=== PATIENT | female | born 1970 ===

== ENCOUNTER 2018-07-31 12:40 | Outpatient (CLI) | payer MEDICAID, SELFPAY ==
--- NOTE | 2018-07-31 14:13 | DI.US_ITS ---
SYMPTOMS/DIAGNOSIS: IUD NOT INTACT UPON REMOVAL, LOCALIZATION OF IUD ARM, T83.39 PELVIC ULTRASOUND: Pelvic ultrasound was performed transabdominally and transvaginally. The patient reportedly has questioned retained fragments of attempted removal of IUD. Transvaginal scanning shows a lower uterine segment echogenic foreign body consistent with IUD fragment. There is an approximately 8 cm in greatest diameter heterogeneous mass like finding in the right adnexal region. This may represent a fibroid or pedunculated fibroid. The possibility of ovarian mass not excluded on the basis of this examination. Correlation with pelvic MRI recommended to differentiate this finding. CONCLUSION: 1. Apparent IUD fragment in lower uterine segment. 2. Right adnexal mass vs fibroid, correlation with MR of the pelvis recommended.
== END 2018-07-31 13:00 ==
PROVIDERS: Visit Provider Nurse Practitioner Adult Health
DX: T83.39XD Other mechanical complication of intrauterine contraceptive device, subsequent encounter (principal); R19.09 Other intra-abdominal and pelvic swelling, mass and lump
CPT/HCPCS: 76830; 76856

== ENCOUNTER 2021-12-07 16:15 | Outpatient (REF) | payer MEDICAID, SELFPAY ==
[2021-12-07 17:21] LABS: HCT 41.8 % (36.0-46.0); HGB 13.7 g/dL (11.2-15.7); MCH 29.1 pg (27.0-33.0); MCHC 32.8 % (32.0-36.0); MCV 88.7 fL (80-95); MPV 10.7 fL (8.0-11.0); Platelet Count 260 10^3/uL (130-400); RBC 4.71 10^6/uL (3.93-5.22); RDW 12.9 % (11.7-14.6); RDW-SD 42.5 fL; WBC 6.55 10^3/uL (4.4-10.8)
[2021-12-07 17:40] LABS: ALT 29 U/L (14-59); AST 24 U/L (15-37); Albumin 4.1 g/dL (3.4-5.0); Alkaline Phosphatase 68 U/L (46-116); Anion Gap 11.3 mmol/L (3-11); BUN 17 mg/dL (7-18); Bilirubin, Total 0.6 mg/dL (0.2-1.0); CO2 25.7 mmol/L (21.0-32.0); CREATININE 0.7 mg/dL (0.55-1.02); Calcium 8.7 mg/dL (8.5-10.1); Calculated LDL 109 mg/dL (<100); Chloride 106 mmol/L (98-107); Cholesterol 187 mg/dL (<200); Glucose 109 mg/dL (74-106); HDL Cholesterol 54 mg/dL (40-60); Potassium 4.1 mmol/L (3.5-5.1); Sodium 143 mmol/L (136-145); TSH (W/Ref FT4) 1.09 uIU/mL (0.36-3.74); Total Protein 7.4 g/dL (6.4-8.2); Triglyceride 121 mg/dL (<150)
[2021-12-09 10:34] LABS: HIV-1/2 Ag & Ab Screen Negative (Negative)
[2021-12-10 11:08] LABS: Hepatitis C Ab w Rflx HCV PCR Negative (Negative)
== END 2021-12-07 16:16 | disposition home or self-care (01) ==
LOC: NCHCN 16:15
PROVIDERS: PCP Nurse Practitioner Family; Visit Provider Nurse Practitioner Family
DX: R63.4 Abnormal weight loss (principal); R03.0 Elevated blood-pressure reading, without diagnosis of hypertension; Z11.4 Encounter for screening for human immunodeficiency virus [HIV]; Z11.59 Encounter for screening for other viral diseases; Z13.220 Encounter for screening for lipoid disorders; Z00.00 Encounter for general adult medical examination without abnormal findings
CPT/HCPCS: 80053; 80061; 85027; 86803; 87389; 84443

== ENCOUNTER 2022-11-29 01:38 | Outpatient (CLI) | payer MEDICAID, SELFPAY ==
--- OUTSIDE RECORDS SUMMARY | 2022-11-29 01:40 | XMS_ITS ---
Author Name LawsonHenri ayala Address [address], [place] [id number] Organization [facility] Address [address], [place] [id number] Care Team Providers Care Supervisor Production Department Name Role Phone Henri Lawson Unavailable PROBLEMS Type Condition ICD9-CM Code [id number] Code Onset Dates Condition Status SNOMED Code Problem EUSTACHIAN TUBE DIS NOS 381.9 Active 70242638 Problem Otorrhea NOS 388.60 Active 79805208 ALLERGIES Substance Reaction Event Type Date Status sulfa eye drops Unknown Non Drug Allergy Jan, A ctive ENCOUNTERS Encounter Location Date Diagnosis [facility] [address], [address] [place], [place] [id number] Jan, Otorrhea NOS 388.60 and EUSTACHIAN TUBE DIS NOS 381.9 IMMUNIZATIONS No Known Immunizations SOCIAL HISTORY Never Assessed REASON FOR REFERRAL FUNCTIONAL STATUS PLAN OF CARE Activity Details VITAL SIGNS Weight 200 lbs 2013-02-22 Heart Rate 80 /min 2013-02-22 Blood pressure systolic 118 mm Hg Blood pressure diastolic 88 mm Hg 2013-01 MEDICATIONS Medication Instructions Dosage Frequency Start Date End Date Duration Status Calcium 500 MG Orally Twice a day 1 tablet with meals 12h 30 day(s) Active colace 100 MG Orally Up to 2 tabs four times a day 1 capsule as needed Active Licorice-Glycin e 400-50 MG as directed Active Kelp 150 MCG Orally Once a day 1 tablet 24h 30 day(s) Active Vitamin D-3 5000 UNIT as directed Active B Complex as directed Ac tive Proctocream HC 2.5 % Rectal Twice a day 1 application to affected area 12h 30 day(s) Active Paragard Intrauterine Copper as directed Active Aguanga 3 1000 MG Orally Once a day 1 capsule 24h 30 day(s) Active PROCEDURES No Known procedures RESULTS No Results REASON FOR VISIT r ear blockage dizziness ? trauma blood in ear no known trauma Insurance Providers Health Insurance Type Health Plan Insurance Address Health Plan Insurance Phone Health Plan Insurance Name Health Plan Coverage Dates Member ID Patient Relationship to Subscriber Patient Address Patient Phone Patient Name Patient Date of Subscriber ID Subscriber Name Subscriber Date of Group No [facility] - DO NOT BILL (Write Off) [id number] [facility] [id number] [facility] - DO NOT BILL (Write Off) [facility] [id number]
[2022-11-29 10:48] LABS: Abs Immature Grans 0.03 10^3/uL (0.0-0.06); Absolute Basophil Count 0.06 10^3/uL (0.0-0.2); Absolute Eosinophil Count 0.25 10^3/uL (0.0-0.7); Absolute Lymphocyte Count 2.69 10^3/uL (1.2-3.4); Absolute Monocyte Count 0.49 10^3/uL (0.1-0.8); Absolute Neutrophil Count 3.35 10^3/uL (1.2-6.7); Basophils % 0.9; Eosinophils % 3.6; HCT 44.2 % (36.0-46.0); HGB 14.5 g/dL (11.2-15.7); Immature Grans % 0.4; Lymphocytes % 39.2; MCH 29.6 pg (27.0-33.0); MCHC 32.8 % (32.0-36.0); MCV 90 fL (80-95); Monocytes % 7.1; Neutrophils % 48.8; Platelet Count 272 10^3/uL (130-400); RDW 13.3 % (11.7-14.6); RDW-SD 44.2 fL; WBC 6.87 10^3/uL (4.4-10.8)
[2022-11-29 11:05] LABS: ALT 44 U/L (14-59); AST 32 U/L (15-37); Albumin 4.1 g/dL (3.4-5.0); Alkaline Phosphatase 65 U/L (46-116); Anion Gap 6.6 mmol/L (3-11); BUN 14 mg/dL (7-18); Bilirubin, Total 0.7 mg/dL (0.2-1.0); CO2 30.4 mmol/L (21.0-32.0); CREATININE 0.8 mg/dL (0.55-1.02); Calcium 9.1 mg/dL (8.5-10.1); Calculated LDL 112 mg/dL (<100); Chloride 103 mmol/L (98-107); Cholesterol 194 mg/dL (<200); Glucose 92 mg/dL (74-106); HDL Cholesterol 64 mg/dL (40-60); Potassium 4.3 mmol/L (3.5-5.1); Sodium 140 mmol/L (136-145); TSH 1.25 uIU/mL (0.36-3.74); Triglyceride 93 mg/dL (<150)
[2022-11-29 11:06] LABS: Hemoglobin A1C 5.7 % (<5.7)
== END 2022-11-29 01:39 | disposition home or self-care (01) ==
LOC: LOS 01:39
PROVIDERS: PCP Nurse Practitioner Family; Visit Provider Naturopath
DX: I10 Essential (primary) hypertension (principal); R53.83 Other fatigue; F41.8 Other specified anxiety disorders; F32.89 Other specified depressive episodes; E55.9 Vitamin D deficiency, unspecified; Z13.1 Encounter for screening for diabetes mellitus
CPT/HCPCS: 36415; 80053; 80061; 82306; 83036; 84443; 85025

== ENCOUNTER 2023-11-19 10:03 | Outpatient (REF) | payer BC, SELFPAY ==
[2023-11-19 15:56] LABS: Vitamin D 25 Total 33.8 ng/mL (30-100)
== END 2023-11-19 10:04 | disposition home or self-care (01) ==
LOC: NCHCN 10:03
PROVIDERS: Visit Provider Student in an Organized Health Care Education/Training Program
DX: E55.9 Vitamin D deficiency, unspecified (principal)
CPT/HCPCS: 82306

== ENCOUNTER 2025-05-22 20:21 | Emergency (ER) | payer BC, SELFPAY ==
[2025-05-22 20:25] VITALS: BP 143/90; PULSE 80; RESP 14; TEMP 36.9; O2SAT 97
[2025-05-22 20:36] VITALS: BP 143/90; PULSE 80; RESP 14; TEMP 36.9; O2SAT 97
[2025-05-22] MEDS: Diph,Pertuss(Acell),Tet Vac/Pf 0.5 ML SYR IM (21:00)
[2025-05-22] MEDS: Amox. 875/Clav. 125, 2 TABS/BTL 1 TAB PO (21:00)
[2025-05-22] MEDS: Acetaminophen 500 MG TAB 1000 MG PO (21:01)
--- NOTE | 2025-05-22 21:07 | W.ED.GENAD ---
Discharge Plan Disposition Patient Disposition: Home Condition: Stable Discharge Details Clinical Impression: Cat scratch of forearm, Cat bite of forearm Primary Care Provider: Unknown,Unknown ED Provider: Lolita Whitaker Home Meds and New Rx's Prescriptions: New amoxicillin-pot clavulanate 875-125 mg tablet 1 tab PO BID 9 Days Qty: 18 0RF No Action zinc gluconate 30 mg tablet 30 mg PO DAILY cholecalciferol (vitamin D3) 1,000 unit capsule 1,000 unit PO DAILY calcium carbonate [Calcium 600] 600 mg calcium (1,500 mg) tablet 600 mg PO BID vitamin B complex [B Complex-Vitamin B12] tablet 2 tab PO DAILY milk thistle 150 mg capsule 150 mg PO BID PRN Adult Probiotic 3 billion cell capsule 3,000 mmu cells PO DAILY bisacodyl [Dulcolax (bisacodyl)] 5 mg tablet,delayed release (DR/EC) 5 mg PO ONCE Qty: 4 0RF Rx Instructions: Colonoscopy Bowel Prep- Per Instructions polyethylene glycol 3350 17 gram/dose powder 255 g PO ONCE Qty: 255 0RF Rx Instructions: Colonoscopy Bowel Prep- Per Instructions Discharge Instructions Instructions: Animal Bites ED Additional Instructions: You were seen in the emergency department today for evaluation after being bit and scratched by a family cat. In our department you had a full physical examination performed, your wounds were cleaned and the laceration was repaired with Steri-Strips. Please ensure that these stay in place for the next few days as your wound starts to heal. You should avoid getting the Steri-Strips wet, soaking or scrubbing, and can keep a gauze in place to protect them as needed. The bite wound should be dressed with bacitracin or other topical antibiotic ointment, and kept clean and dry with a dressing. Please use therapeutic dosing of Tylenol (acetaminophen) & Advil (ibuprofen) in an alternating fashion as follows: Take 1000mg of Tylenol every 6 hours without missing doses- that is 4 times per day. [place] in between the Tylenol doses, take 600mg of Advil also on a 6 hour schedule, that is also 4 times per day. With this strategy, you will be taking something for fever/pain as often as every 3 hours. The daily maximum dosing of Tylenol is 4000mg, and the daily maximum dosing of Advil is 2400mg. Please note that some common cold medications & prescription pain medications may contain acetaminophen and you need to read OTC drug labels and factor that in to maximum daily doses. You were started on antibiotics, please take all of this medication until it is gone, even if you start to feel better. Please follow-up with your primary care provider in the next few days to discuss this visit and any symptoms that change, worsen, or persist. Thank you for allowing us to be part of your care. HPI General Mode of arrival: ambulatory. Date/Time Provider Initiated Documentation: 05/22/25 20:31. Limitations to Documentation: no limitations. Information obtained by: patient, family and old records reviewed. HPI Narrative: This is a 55-year-old female patient, previously healthy, presenting for evaluation after a cat bite. She reports that her family members cat got out, he is typically an indoor cat and has received all of his rabies vaccines. When she picked him up to bring him back inside he began biting and scratching, bit her several times on the right forearm and scratched her left hand. She did not sustain any other injury, this happened immediately prior to arrival, has not taken any medications. Is not sure when her last tetanus vaccine was. Prior to this event she was in her normal state of health, states that she has full range of motion of both of her hands without numbness, tingling, or weakness has full range of motion of her hands without numbness, tingling, weakness Related Data Home Medications ?Medication ?Instructions ?Recorded ?Confirmed calcium carbonate (Calcium 600) 600 mg PO BID 08/20/18 05/22/25 cholecalciferol (vitamin D3) 25 1,000 unit PO DAILY 08/20/18 05/22/25 mcg (1,000 unit) capsule vitamin B complex (B 2 tab PO DAILY 08/20/18 05/22/25 Complex-Vitamin B12 tablet) zinc gluconate 30 mg tablet 30 mg PO DAILY 08/20/18 05/22/25 bisacodyl 5 mg tablet,delayed 5 mg PO ONCE Colonoscopy Bowel 09/25/18 05/22/25 release (Dulcolax (bisacodyl)) Prep #4 tabs lactobacillus combination no.8 3 3,000 mmu cells PO DAILY 09/25/18 05/22/25 billion cell capsule (Adult Probiotic) milk thistle 150 mg capsule 150 mg PO BID PRN 09/25/18 05/22/25 polyethylene glycol 3350 17 255 g PO ONCE Colonoscopy Bowel 09/25/18 05/22/25 gram/dose oral powder Prep #255 grams amoxicillin 875 mg-potassium 1 tab PO BID 9 days #18 tabs 05/22/25 clavulanate 125 mg tablet Previous Rx's ?Medication ?Instructions ?Recorded bisacodyl 5 mg tablet,delayed 5 mg PO ONCE Colonoscopy Bowel 09/25/18 release (Dulcolax (bisacodyl)) Prep #4 tabs polyethylene glycol 3350 17 255 g PO ONCE Colonoscopy Bowel 09/25/18 gram/dose oral powder Prep #255 grams amoxicillin 875 mg-potassium 1 tab PO BID 9 days #18 tabs 05/22/25 clavulanate 125 mg tablet Allergies Allergy/AdvReac Type Severity Reaction Status Date / Time Sulfa (Sulfonamide Allergy Unknown red Verified 05/22/25 20:32 Antibiotics) julian Allergy Severe rash, Uncoded 05/22/25 20:32 itches sulfa eye drops Allergy Unknown itchy Uncoded 05/22/25 20:32 General Stated Complaint: AnimalBite OBDULIA: 4 Exam Narrative Exam Narrative: Gen: Awake and alert, in no apparent distress HEENT: Non-icteric sclera Neck: Supple Lungs: No apparent respiratory distress, normal respiratory effort. CV: Appears well perfused Abdomen: Non-distended MSK: Moves 4 extremities without apparent limitation in ROM. She has full resisted flexion and extension bilaterally of the fingers and hand Skin: Visualized skin without rashes, cyanosis. The patient has numerous puncture wounds to both the flexor and extensor surfaces of the distal forearm of the right arm, hemostatic. She has an approximately 1-1/2 cm laceration over the dorsal aspect of the left hand, superficial without involvement of any deep structures during complete visualization. Neuro: Normal Gait, no obvious focal deficits or facial asymmetry. Speaks in full, clear sentences. Psych: Appropriate for situation. Course Vital Signs Vital signs: Vital Signs Temperature 36.9 C 05/22/25 20:25 Pulse 80 05/22/25 20:25 Respiratory Rate 14 05/22/25 20:25 Blood Pressure 143/90 H 05/22/25 20:25 Pulse Oximetry 97 05/22/25 20:25 Temperature 36.9 C 05/22/25 20:36 Temperature Source Oral 05/22/25 20:25 Pulse 80 05/22/25 20:36 Respiratory Rate 14 05/22/25 20:36 Blood Pressure 143/90 H 05/22/25 20:36 Blood Pressure Position Sitting 05/22/25 20:25 Pulse Oximetry 97 05/22/25 20:36 Oxygen Delivery Method Room Air 05/22/25 20:36 Oxygen Flow Rate 0 05/22/25 20:36 Pain Level 5 05/22/25 20:36 Medical Decision Making This is a 55-year-old female patient presenting for evaluation after cat bite. Differential includes but is not limited to puncture wound, laceration, no evidence for tendon or neurovascular injury. The mechanism and exam is less concerning for fracture, dislocation or foreign body. Duration of symptoms and exam reassuring against secondary/superinfection. All of the wounds were thoroughly cleansed with antiseptic soap and sterile water. The laceration of the hand was able to be well-approximated and secured with Steri-Strips, and the puncture wounds were dressed with bacitracin and gauze. A tetanus booster and dose of Tylenol was provided to the patient, as well as a take-home pack of Augmentin. The prescription for the remainder of her 10-day Augmentin course was sent to her pharmacy. I counseled the patient on conservative pain management and wound care. At this time, the patient has had a full medical evaluation and is safe for discharge to home. They are hemodynamically stable, ambulatory, and tolerating PO. They are understanding of the follow-up plan and return precautions. They left our facility without incident. Lolita Whitaker MD [facility] All Active Problems (Updated 05/22/25 @ 21:08 by Lolita Whitaker MD) Cat bite of forearm (Acute) Cat scratch of forearm (Acute) Encounter for screening colonoscopy (Acute) Elevated blood pressure reading (Acute) Social History (Updated 08/20/18 @ 07:20 by Shawanda Pagan RN) Smoking/Tobacco Use Status: Former Tobacco Use Smoking risk assessment performed?: Yes Alcohol Intake: former Drug use: Occasionally Substance use type: marijuana Housing: house Do you feel safe at home: Yes Do you feel safe in your relationship?: Yes
== END 2025-05-22 21:16 | disposition home or self-care (01) ==
LOC: ER 21:20
PROVIDERS: Emergency Provider Emergency Medicine
DX: S40.872A Other superficial bite of left upper arm, initial encounter (principal); S40.871A Other superficial bite of right upper arm, initial encounter; W55.01XA Bitten by cat, initial encounter
CPT/HCPCS: 99283 ×2; 90471; 90715

== ENCOUNTER 2025-07-13 01:56 | Outpatient (CLI) | payer BC, SELFPAY ==
[2025-07-13 07:50] LABS: Abs Immature Grans 0.02 10^3/uL (0.0-0.06); HCT 39.9 % (36.0-46.0); HGB 13.0 g/dL (11.2-15.7); Immature Grans % 0.3 %; MCH 29.0 pg (27.0-33.0); MCHC 32.6 % (32.0-36.0); MCV 89 fL (80-95); MPV 9.5 fL (8.0-11.0); Platelet Count 242 10^3/uL (130-400); RBC 4.49 10^6/uL (3.93-5.22); RDW 13.3 % (11.7-14.6); RDW-SD 43.5 fL; WBC 7.14 10^3/uL (4.4-10.8)
[2025-07-13 09:47] LABS: TSH (W/Ref FT4) 4.08 uIU/mL (0.55-4.78); Vitamin D 25 Total 31 ng/mL (30-100)
[2025-07-13 09:50] LABS: ALT 27 U/L (10-49); AST 33 U/L (<34); Albumin 4.4 g/dL (3.4-5.0); Alkaline Phosphatase 62 U/L (46-116); Anion Gap 4.9 mmol/L (3-11); BUN 18 mg/dL (9-23); Bilirubin, Total 0.50 mg/dL (0.2-1.2); CO2 29.1 mmol/L (20.0-31.0); Calcium 9.3 mg/dL (8.3-10.6); Chloride 106 mmol/L (98-107); Cholesterol 187 mg/dL (<200); Glucose 90 mg/dL (74-106); HDL Cholesterol 54 mg/dL (>40); Potassium 4.5 mmol/L (3.5-5.1); Sodium 140 mmol/L (136-145); Total Protein 7.3 g/dL (5.7-8.2)
[2025-07-14 11:08] LABS: Lyme Ab w Rflx to Lyme Confirm Negative (Negative)
== END 2025-07-13 01:57 | disposition home or self-care (01) ==
LOC: LBO 01:56
PROVIDERS: Visit Provider Family Medicine
DX: R53.83 Other fatigue (principal); Z13.220 Encounter for screening for lipoid disorders; E66.812 Obesity, class 2; Z68.35 Body mass index [BMI] 35.0-35.9, adult; I10 Essential (primary) hypertension; Z13.29 Encounter for screening for other suspected endocrine disorder
CPT/HCPCS: 36415; 80053; 80061; 82306; 84443; 85025; 86618